=== PATIENT | male | born 1985 | race Hispanic/Latino ===

== ENCOUNTER 2021-09-08 01:01 | Emergency (ER) | payer OTHER ==
[2021-09-08 01:05] VITALS: BP 133/68
[2021-09-08] MEDS ORDERED: SODIUM CHLORIDE 0.9% 1000 ML 1,000 ML IV ONE (02:56)
[2021-09-08] MEDS ORDERED: ONDANSETRON 4 MG/2 ML INJ IV ONE (02:56)
[2021-09-08] MEDS ORDERED: DICYCLOMINE 20 MG TAB PO ONE (02:58)
--- NOTE | 2021-09-08 04:23 | Emergency Department Report ---
Vomiting/Diarrhea - HPI Chief Complaint: Nausea/Vomiting/Diarrhea Stated Complaint: POSS FOOD POISON Duration: Today Severity: mild Nausea/Vomiting Severity: Mild Diarrhea Severity: Moderate Pain Location: Generalized Pain Severity: Moderate Symptoms: Yes Watery Diarrhea, Yes Able to Tolerate Fluids, Yes Recent Unusual Foods, No Bloody diarrhea, No Fever, No Recent Untreated Water, No Recent use of Antibiotics, No Family w/ Similar Symptoms, No Contacts w/ Similar Symptoms, No Rash, No Hematuria, No Recent URI Symptoms Other History: 35-year-old male presented with nausea /vomiting/diarrhea and abdominal cramping after eating [place] food x1 day. Patient stated that he recently traveled to [place] and today he vomited x2, with multiple diarrhea that has since decrease since er visit. He denies any chest pain shortness of breath or fever chills. ED Review of Systems ROS: Stated complaint: POSS FOOD POISON Other details as noted in HPI Constitutional: denies: chills, fever Eyes: denies: eye pain, eye discharge, vision change ENT: denies: ear pain, throat pain Respiratory: denies: cough, shortness of breath, wheezing Cardiovascular: denies: chest pain, palpitations Endocrine: no symptoms reported Gastrointestinal: abdominal pain, nausea, vomiting, diarrhea Genitourinary: denies: urgency, dysuria Musculoskeletal: denies: back pain, joint swelling, arthralgia Skin: denies: rash, lesions Neurological: denies: headache, weakness, paresthesias Psychiatric: denies: anxiety, depression Hematological/Lymphatic: denies: easy bleeding, easy bruising ED Past Medical Hx - Past Medical History Previous Medical History?: No - Surgical History Past Surgical History?: No - Medications Home Medications: Home Medications Medication Instructions Recorded Confirmed Last Taken Type Dicyclomine [Bentyl] 20 mg PO QID 5 Days #20 tablet 09/08/21 Unknown Rx Ondansetron (Nf) [Zofran TAB] 8 mg PO Q8HR PRN 5 Days #12 tablet 09/08/21 Unknown Rx Vomiting Diarrhea Exam - Exam General: Vital signs noted. No distress. Alert and acting appropriately. HEENT: Yes Moist Mucous Membranes, No Pharyngeal Erythema, No Pharyngeal Exudates, No Rhinorrhea, No Conjuctival Injection, No Frontal Tenderness, No Maxillary Tenderness Neck: No Adenopathy, No Rigidity Lungs: Yes Clear Lung Sounds, Yes Good Air Exchange, No Wheezes, No Stridor, No Cough, No Nasal Flaring, No Retractions, No Use of Accessory Muscles Heart exam: Regular: Yes, Murmur: No, Tachycardia: No Abdomen: Tenderness: No, Peritoneal Signs: No, Distention: No, Hyperactive Bowel sounds: No Skin exam: Rash: No, Edema: No, Normal turgor: Yes Neurologic: Alert and oriented, no deficits. Musculoskeletal: Unremarkable. ED Course Vital Signs 09/08/21 01:03 Temperature 98.3 F Pulse Rate 93 H Respiratory 18 Rate Blood Pressure 133/68 O2 Sat by Pulse 97 Oximetry ED Medical Decision Making - Medical Decision Making 35-year-old male presented with nausea /vomiting/diarrhea and abdominal cramping after eating [place] food x1 day. Patient stated that he recently traveled to [place] and today he vomited x2, with multiple diarrhea that has since decrease since er visit. He denies any chest pain shortness of breath or fever chills. Patient been given IV bolus, Zofran and Bentyl . Patient states that he feels better. Patient states able to tolerate fluids. Patient has no diarrhea since ED. patient alert and oriented x4. Discharge plan discussed and verbalized understanding. Critical care attestation.: If time is entered above; I have spent that time in minutes in the direct care of this critically ill patient, excluding procedure time. ED Disposition Clinical Impression: Gastroenteritis Disposition: HOME / SELF CARE / HOMELESS Is pt being admited?: No Does the pt Need Aspirin: No Condition: Stable Instructions: Viral Gastroenteritis, Adult, [id number] Additional Instructions: Take medication as prescribed Follow-up with primary care doctor as needed Return to ED for any worsening symptoms Prescriptions: Dicyclomine [Bentyl] 20 mg PO QID 5 Days #20 tablet Ondansetron (Nf) [Zofran TAB] 8 mg PO Q8HR PRN 5 Days #12 tablet PRN Reason: Nausea Referrals: PRIMARY MD TIFFANY [Primary Care Provider] - 3-5 Days CHRIS CABRERA MD [Staff Physician] - 3-5 Days
== END 2021-09-08 04:45 | disposition home or self-care (01) ==
LOC: ED 01:01
DX: K52.9 Noninfective gastroenteritis and colitis, unspecified (principal)
CPT/HCPCS: 96361; 96374; 99282; J2405; J7030; Q0162